=== PATIENT | male | born 2000 | race Caucasian/White ===

== ENCOUNTER 2024-01-22 15:34 | Observation (INO) ==
[2024-01-22] MEDS ORDERED: IOPAMIDOL 100 ML BOTTLE IV ONE (15:35)
[2024-01-22 16:41] LABS: Basophils # (Auto) 0.03 K/mcL (0.00-0.30); Basophils % (Auto) 0.2 % (0.0-2.0); Eosinophils # (Auto) 0.35 K/mcL (0.00-0.70); Eosinophils % (Auto) 2.8 % (0.0-7.0); Hemoglobin 15.2 g/dL (13.7-17.5); Lymphocytes # (Auto) 1.86 K/mcL (1.50-4.80); Mean Cell Volume 88.4 fL (80.0-100.0); Mean Corpuscular HGB Conc 33.8 g/dL (31.0-36.0); Mean Platelet Volume 9.3 fL (8.8-12.5); Monocytes # (Auto) 1.06 K/mcL (0.10-0.90); Monocytes % (Auto) 8.5 % (1.0-12.0); Neutrophils % (Auto) 73.4 % (38.0-78.0); Platelet Count 194 K/mcL (140-440); RBC 5.09 M/mcL (4.63-6.08); Red Cell Distribution Width 12.7 % (11.5-14.5); WBC 12.4 K/mcL (4.5-11.0)
[2024-01-22 16:41] LABS: Appearance,Urine Clear (Clear); Bilirubin,Urine Negative (Negative); Color,Urine Yellow; Culture Indicated,Urine No; Glucose,Urine (UA) Negative (Negative); Ketones,Urine Negative (Negative); Leukocyte Esterase,Urine Negative /uL (Negative); Nitrate,Urine Negative (Negative); PH,Urine 6.5 (5.0-9.0); Protein,Urine Negative (Negative); Urine Blood Negative ery/mcL (Negative); Urobilinogen,Urine Normal
[2024-01-22] MEDS: KETOROLAC 30 MG/ML VIAL IV ONE (16:47)
[2024-01-22] MEDS: LACTATED RINGERS 1,000 ML IV ONE (16:47)
[2024-01-22] MEDS: ONDANSETRON 4 MG/2 ML VIAL IV ONE (16:48)
[2024-01-22 17:02] LABS: ALT/SGPT 18 U/L (<40); AST/SGOT 25 U/L (<40); Albumin 4.4 gm/dL (3.2-5.2); Alkaline Phosphatase 64 U/L (39-117); Bilirubin,Total 0.5 mg/dL (0.1-1.0); Blood Urea Nitrogen 15 mg/dL (6-20); Carbon Dioxide 24 mmol/L (22-30); Chloride 105 mmol/L (96-108); Globulin 2.2 gm/dL (2.2-3.7); Glomerular Filtration Rate 127; Glucose 89 mg/dL (70-105)
[2024-01-22] MEDS: cefTRIAXone 2 GM in DEXTROSE 5% IN WATER 50 ML IV ONE (17:53)
[2024-01-22] MEDS: metroNIDAZOLE 500 MG/100 ML BAG IV SCH ×2 (18:30→20:39)
[2024-01-22] MEDS: morphine 2 MG/ML VIAL IV PRN (19:58)
[2024-01-22] MEDS: DEXTROSE 5%-LR 1,000 ML IV SCH (20:51)
[2024-01-22] MEDS: tiZANidine 4 MG TABLET PO PRN (21:45)
[2024-01-22] MEDS: ONDANSETRON 4 MG/2 ML VIAL IV PRN (21:48)
[2024-01-22] MEDS: CIPROFLOXACIN 400 MG/200 ML BAG IV SCH (21:49)
[2024-01-23] MEDS: metroNIDAZOLE 500 MG/100 ML BAG IV SCH (04:09)
[2024-01-23 05:57] LABS: Hematocrit 38.4 % (40.1-51.0); Mean Cell Volume 88.7 fL (80.0-100.0); Mean Corpuscular HGB Conc 33.9 g/dL (31.0-36.0); Platelet Count 165 K/mcL (140-440); RBC 4.33 M/mcL (4.63-6.08); WBC 9.2 K/mcL (4.5-11.0)
[2024-01-23 06:40] LABS: Blood Urea Nitrogen 11 mg/dL (6-20); Calcium 8.5 mg/dL (8.6-10.4); Carbon Dioxide 27 mmol/L (22-30); Chloride 105 mmol/L (96-108); Glomerular Filtration Rate 106; Glucose 93 mg/dL (70-105)
[2024-01-23] MEDS ORDERED: PROPOFOL 200 MG/20 ML VIAL IV ONE (07:03)
[2024-01-23] MEDS ORDERED: fentaNYL 100 MCG/2 ML VIAL ONE ×2 (07:03→08:46)
[2024-01-23] MEDS ORDERED: ROCURONIUM 10 MG/ML ML IV ONE ×2 (07:03→08:18)
[2024-01-23] MEDS ORDERED: ONDANSETRON 4 MG/2 ML VIAL ONE (07:03)
[2024-01-23] MEDS ORDERED: LIDOCAINE 2% PF 5 ML VIAL ONE (07:03)
[2024-01-23] MEDS ORDERED: KETAMINE 50 MG/ML Syringe IV ONE (07:03)
[2024-01-23] MEDS ORDERED: DEXAMETHASONE 10 MG/ML VIAL ONE (07:03)
[2024-01-23] MEDS ORDERED: MAGNESIUM SULFATE 2 GM/50 ML BAG IV ONE (07:04)
[2024-01-23] MEDS ORDERED: IPRATROPIUM/ALBUTEROL 3 ML AMPUL.NEB NEB PRN (08:26)
[2024-01-23] MEDS ORDERED: diphenhydrAMINE 50 MG/ML VIAL IV PRN (08:26)
[2024-01-23] MEDS ORDERED: HYDROmorphone 0.5 MG/0.5 ML SYRINGE IV PRN (08:26)
[2024-01-23] MEDS ORDERED: PROMETHAZINE 25 MG/ML VIAL IV PRN (08:26)
[2024-01-23] MEDS ORDERED: NALOXONE HCL 0.4 MG/ML VIAL IV PRN (08:26)
[2024-01-23] MEDS ORDERED: ONDANSETRON 4 MG/2 ML VIAL IV PRN (08:26)
[2024-01-23] MEDS ORDERED: fentaNYL 100 MCG/2 ML VIAL IV PRN (08:26)
[2024-01-23] MEDS ORDERED: MEPERIDINE 25 MG/ML VIAL IV PRN (08:26)
[2024-01-23] MEDS ORDERED: LACTATED RINGERS 250 ML IV PRN (08:26)
[2024-01-23] MEDS ORDERED: SUGAMMADEX SODIUM 200 MG/2 ML VIAL IV ONE (08:43)
[2024-01-23] MEDS: KETOROLAC 30 MG/ML VIAL IV PRN (09:30)
[2024-01-23] MEDS: LACTATED RINGERS 1,000 ML IV SCH (13:21)
== END 2024-01-23 18:23 | disposition home or self-care (01) ==
LOC: ED 15:34 → MEDSUR 15:34
PROVIDERS: ADMIT Surgery Surgical Critical Care; ATTEND Surgery Surgical Critical Care
PROC: LAPAPPY (ICD-10-PCS; 2024-01-23 07:30)